=== PATIENT | female | born 1955 | race Caucasian/White ===

== ENCOUNTER 2016-08-21 22:35 | Inpatient (IN) | payer SELFPAY ==
--- NOTE | ~2016-08-21 | DS ---
Discharge Summary [facility] [address] [place]. [address] NAME: RAQUEL VELASCO : 59 STATUS : DIS IN PAT#: [id number] AGE: 61 ADM/REG DATE : 08/22/16 MR#: [id number] REPORT SERV DATE: 08/24/16 DICTATED BY: HERIBERTO CABAN DATE: 08/24/16 REPORT STATUS : Draft TRANSCRIBED BY: MODL DATE: 08/24/16 ADMISSION DATE: 08/22/2016 DISCHARGE DATE: 08/24/2016 DISCHARGE DIAGNOSES: 1. Haemophilus influenzae infection. 2. Acute hypoxic respiratory failure. 3. Chronic obstructive pulmonary disease exacerbation. 4. Leukocytosis. 5. Smoking. 6. Anxiety. 7. Borderline macrocytosis. CONSULTANTS: None. PROCEDURES: None. HOSPITAL COURSE: This is a 61-year-old lady who was admitted to the hospital with initial diagnosis of COPD exacerbation. For details, please refer to excellent H and P dictated by Dr. Federico Suazo. In summary, the patient was admitted and was treated with oxygen support bronchodilator therapy as well as IV steroids and antibiotics. The patient has progressively improved throughout the hospital stay. On the second day of the hospital stay, the patient's respiratory culture did come back positive for H flu and the patient antibiotic was changed from doxycycline to azithromycin. The patient was also evaluated for home O2, which the patient failed by only being able to maintain 87% on room air with ambulation. With oxygen, the patient was quite stable and the patient showed significant clinical improvement. The patient is now being discharged home with home oxygen. The patient follows with Dr. Borrero and she already has an appointment to see him in the near future. DISPOSITION: Home. DISCHARGE MEDICATIONS: 1. Prednisone 40 mg p.o. daily x4 days, and after that, the patient will resume 10 mg p.o. daily, chronic therapy. 2. Azithromycin 500 mg p.o. daily x4 days. 3. Home O2. Otherwise, no medication changes. FOLLOWUP: 1. Please follow up with PCP in the next one to two weeks. 2. Please follow up with Dr. Borrero as already scheduled. A total of 25 minutes spent in coordinating this patient's discharge today. DICTATED BY: Heriberto Caban MD Discharge Summary [place] [id number] [facility] [place]. [id number] NAME: RAQUEL VELASCO : 59 STATUS : DIS IN PAT#: [id number] AGE: 61 ADM/REG DATE : 08/22/16 MR#: [id number] REPORT SERV DATE: 08/24/16 DICTATED BY: HERIBERTO CABAN DATE: 08/24/16 REPORT STATUS : Draft TRANSCRIBED BY: BERNICE DATE: 08/24/16 [facility] Heriberto Caban MD / [id number] CC: Heriberto Caban MD
--- NOTE | ~2016-08-21 | HP ---
History And Physical [place] [id number] [facility] [place]. [address] NAME: RAQUEL VELASCO : 59 STATUS : ADM IN PAT#: [id number] AGE: 61 ADM/REG DATE : 08/22/16 MR#: [id number] REPORT SERV DATE: 08/22/16 DICTATED BY: BRYAN SUAZO DATE: 08/22/16 REPORT STATUS : Draft TRANSCRIBED BY: MODL DATE: 08/22/16 DATE OF ADMISSION: 08/22/2016 CHIEF COMPLAINT: A 61-year-old female presenting with lethargy and shortness of breath. HISTORY OF PRESENTING ILLNESS: The patient's history was obtained through an interview with the patient and her fiance. For really several months now, the patient has been having intermittent difficulty with breathing. About a month ago, she underwent a 10-day course of amoxicillin and prednisone because of recurrent bronchitis. Over the last three or four nights now, the patient has developed increasing shortness of breath characterized by dyspnea on exertion and a cough productive of a thick green sputum. She describes a headache that has been on and off for five months, but it has been worsened now in the last few days at the top of her head, as if her head is going to explode and it sometimes goes down to her neck as an 8/10 severity. No chest pain. No fevers or chills. No nausea or vomiting. She has felt lightheadedness. Sometimes, she has felt incoherent and "groggy." REVIEW OF SYSTEMS: Otherwise, a 14-point review of systems was obtained and was negative. PAST MEDICAL HISTORY: 1. COPD. 2. Hypertension. 3. Gastroesophageal reflux disorder. 4. Anxiety. 5. No cardiac disease. PAST SURGICAL HISTORY: Hysterectomy. ALLERGIES: NO KNOWN DRUG ALLERGIES. SOCIAL HISTORY: The patient continues to smoke. Drinks occasional alcohol. Lives with her fiance in [place], [place]. Has one child. FAMILY HISTORY: Mother with cancer. Brother with spine cancer. CURRENT MEDICATIONS: Include Xanax 1 mg p.o. b.i.d., aspirin 81 mg p.o. daily, Symbicort two puffs inhaled twice a day, Combivent, Lopressor 50 mg p.o. b.i.d., multivitamin daily, Pamelor 75 mg p.o. b.i.d., prednisone 10 mg p.o. daily, Zantac 150 mg p.o. b.i.d., Spiriva History And Physical [address] [address] NAME: RAQUEL VELASCO : 59 STATUS : ADM IN PAT#: [id number] AGE: 61 ADM/REG DATE : 08/22/16 MR#: [id number] REPORT SERV DATE: 08/22/16 DICTATED BY: BRYAN SUAZO DATE: 08/22/16 REPORT STATUS : Draft TRANSCRIBED BY: BERNICE DATE: 08/22/16 inhaled daily, Rexulti. PHYSICAL EXAMINATION: VITAL SIGNS: Temperature 98.7, pulse 62, blood pressure 128/78, respiratory rate 18, and O2 saturation 84% on room air. GENERAL: An ill-appearing female in evidence of distress secondary to shortness of breath. She is quite lethargic as well. HEENT: Pupils equal, round, and reactive to light. No conjunctival pallor. No scleral icterus. Nares are patent. Oropharynx is clear of obstruction. Moist mucous membranes. NECK: Trachea midline. No thyromegaly. LYMPH: No cervical lymphadenopathy. No supraclavicular lymphadenopathy. RESPIRATORY: Quite harsh inspiratory and expiratory wheezes auscultated throughout with diminished breath sounds at the base of lungs in particular. No focal egophony. No rales. The patient has a labored respiratory effort. CARDIOVASCULAR: Regular rate and rhythm. No murmurs, rubs, or gallops. No extremity edema is appreciated. ABDOMEN: Soft, nontender, nondistended. Normal bowel sounds auscultated throughout. No hepatosplenomegaly. DERMATOLOGICAL: Warm and dry extremities. No pallor. No cyanosis. PSYCHIATRIC: Lethargic, but easily responsive to vocal stimuli. Oriented x3. Flat affect, but claims to be in a good mood. LABORATORY DATA: White blood cell count 18.2, hemoglobin 15, hematocrit 47, platelets 317. Sodium 142, potassium 4.3, chloride 102, bicarb 36, BUN 10, creatinine 1.07, glucose 105. Troponin negative. Liver enzymes within normal limits. ABG demonstrates a pH of 7.36, a PaCO2 of 55, a PO2 of 49, and a bicarb of 31 on room air. STUDIES: 1. Chest x-ray by my own evaluation shows no acute cardiopulmonary process. 2. EKG by my own evaluation shows sinus rhythm. There are ST depressions and T-wave inversions in leads 3 and AVF. ASSESSMENT AND PLAN: 1. Hypoxic respiratory failure. Provide supportive care. 2. Chronic obstructive pulmonary disease exacerbation. Follow ABG. As the patient is quite lethargic and has minimal acidosis with hypercapnia, place on IV Solu-Medrol, Duo nebulizers, doxycycline. 3. Leukocytosis. Check sputum culture. Check procalcitonin. Monitor for overt fevers. 4. Abnormal EKG, but no chest pain. Follow troponin. Check telemetry. 5. Macrocytosis. Check studies. KPL/MODL Bryan Suazo M.D. History And Physical [address] [address] NAME: RAQUEL VELASCO : 59 STATUS : ADM IN [facility]#: [id number] AGE: 61 ADM/REG DATE : 08/22/16 MR#: [id number] REPORT SERV DATE: 08/22/16 DICTATED BY: BRYAN SUAZO DATE: 08/22/16 REPORT STATUS : Draft TRANSCRIBED BY: BERNICE DATE: 08/22/16 / [id number] CC: Heriberto Priest MD
[2016-08-21 23:09] LABS: ALLENS TEST Pos; BE (BASE EXCESS) 3.5 MEQ/L (0 +/- 2.5); CARBOXYHEMOGLOBIN 7.2 % (0-3); HCO3 (ACTUAL BICARBONATE) 30.6 MEQ/L (23-27); INSTRUMENT SERIAL # 8087; METHEMOGLOBIN 0.2 % (0-3); O2 CONTENT 17.5 VOL% (18-24); OPERATOR ID 17589; PCO2 (CO2 TENSION) 55 MMHG (35-45); PO2 (O2 TENSION) 49 MMHG (79-93); SAMPLE Arterial; pH 7.36 (7.37-7.43)
[2016-08-21 23:18] LABS: BASOPHILS 0.2 %; BASOPHILS ABSOLUTE 0.03 10/3/uL (0.0-0.16); EOSINOPHILS 0.1 %; EOSINOPHILS ABSOLUTE 0.02 10/3/uL (0.0-0.53); ER CBC TAT 0 Hrs 08 Mins; HEMATOCRIT 46.8 % (36.0-48.0); HEMOGLOBIN 15.5 g/dL (12.0-16.0); IMMATURE GRANULOCYTES 0.3 %; IMMATURE GRANULOCYTES ABSOLUTE 0.05 10/3/uL (0.0-0.11); LYMPHOCYTES 5.9 %; LYMPHOCYTES ABSOLUTE 1.08 10/3/uL (0.67-4.30); MEAN CORPUS HGB CONC 33.1 g/dL (32.0-36.0); MEAN CORPUSCULAR HEMOGLOB 33.3 pg (26.0-34.0); MEAN CORPUSCULAR VOLUME 100.6 fL (80-100); MEAN PLATELET VOLUME 9.3 fL (9.2-13.0); MONOCYTES 2.5 %; MONOCYTES ABSOLUTE 0.46 10/3/uL (0.21-1.20); NEUTROPHILS ABSOLUTE 16.54 10/3/uL (2.02-8.40); PLATELET COUNT 317 10/3/uL (150-400); RBC DISTRIBUTION WIDTH 13.5 % (12.0-16.0); RED CELL COUNT 4.65 10/6/uL (4.0-5.6); WHITE BLOOD CELLS 18.2 10/3/uL (4.5-10.5)
[2016-08-21 23:19] LABS: MANUAL DIFF NO %
[2016-08-21 23:39] LABS: A/G RATIO 0.9 (0.7-1.9); ALBUMIN 3.5 G/DL (3.5-5.0); ALKALINE PHOSPHATASE 95 U/L (45-117); BUN (BLOOD UREA NITROGEN) 10 MG/DL (6-23); CALCIUM, SERUM 9.1 MG/DL (8.5-10.4); CHLORIDE, SERUM 102 MMOL/L (96-112); CO2 (CARBON DIOXIDE) 36 MMOL/L (24-34); CREATININE 1.07 MG/DL (0.55-1.02); GFR AFRICAN AMERICAN 66 ML/MIN (>=60); GFR NON AFRICAN AMERICAN 57 ML/MIN (>=60); GLOBULIN 3.7 G/DL (2.5-4.1); GLUCOSE, SERUM 105 MG/DL (60-99); POTASSIUM, SERUM 4.3 MMOL/L (3.5-5.3); SGOT(AST) 23 U/L (5-40); SGPT(ALT) 55 U/L (5-65); SODIUM, SERUM 142 MMOL/L (135-148); TOTAL BILIRUBIN 0.3 MG/DL (0-1.2); TOTAL PROTEIN 7.2 G/DL (6.0-8.5); TROPONIN I <0.02 NG/ML (<0.05)
[2016-08-22] MEDS ORDERED: ZANTAC 150 PO (01:57)
[2016-08-22] MEDS ORDERED: MULTIVIT/MIN PO (01:57)
[2016-08-22] MEDS ORDERED: P10 PO (01:58)
[2016-08-22] MEDS ORDERED: LOP50 PO (01:59)
[2016-08-22] MEDS ORDERED: REXULTI 2MG PO (01:59)
[2016-08-22] MEDS ORDERED: HALF81 PO (02:00)
[2016-08-22] MEDS ORDERED: NOR75 PO (02:00)
[2016-08-22] MEDS ORDERED: SYMBICORT 160/41 INH INH (02:01)
[2016-08-22] MEDS ORDERED: COMBIVENT RESPIM4 GM INH (02:02)
[2016-08-22] MEDS ORDERED: SPIRIVA INH (02:02)
[2016-08-22] MEDS ORDERED: X5 PO (02:03)
[2016-08-22] MEDS ORDERED: XANAX1 MG PO (02:03)
[2016-08-22 06:03] LABS: ALLENS TEST Pos; BE (BASE EXCESS) 2.8 MEQ/L (0 +/- 2.5); CARBOXYHEMOGLOBIN 3.8 % (0-3); DEVICE NC; HCO3 (ACTUAL BICARBONATE) 28.9 MEQ/L (23-27); HEMOBLOGIN CONTENT 16.1 G/DL (12-16); INSTRUMENT SERIAL # 35151; METHEMOGLOBIN 0.2 % (0-3); O2 CONTENT 20.3 VOL% (18-24); PCO2 (CO2 TENSION) 49 MMHG (35-45); PO2 (O2 TENSION) 69 MMHG (79-93); SAMPLE Arterial; pH 7.39 (7.37-7.43)
[2016-08-22 12:41] LABS: BASOPHILS 0.1 %; BASOPHILS ABSOLUTE 0.01 10/3/uL (0.0-0.16); EOSINOPHILS 0 %; HEMATOCRIT 48.6 % (36.0-48.0); HEMOGLOBIN 16.2 g/dL (12.0-16.0); IMMATURE GRANULOCYTES 0.3 %; IMMATURE GRANULOCYTES ABSOLUTE 0.05 10/3/uL (0.0-0.11); LYMPHOCYTES 6.4 %; LYMPHOCYTES ABSOLUTE 1.01 10/3/uL (0.67-4.30); MEAN CORPUS HGB CONC 33.3 g/dL (32.0-36.0); MEAN PLATELET VOLUME 9.2 fL (9.2-13.0); MONOCYTES ABSOLUTE 0.47 10/3/uL (0.21-1.20); NEUTROPHILS 90.2 %; NEUTROPHILS ABSOLUTE 14.15 10/3/uL (2.02-8.40); PLATELET COUNT 340 10/3/uL (150-400); RBC DISTRIBUTION WIDTH 13.2 % (12.0-16.0); RED CELL COUNT 4.91 10/6/uL (4.0-5.6); WHITE BLOOD CELLS 15.7 10/3/uL (4.5-10.5)
[2016-08-22 12:43] LABS: MANUAL DIFF NO %
[2016-08-22 12:48] LABS: PARTIAL THROMBO TIME 33.9 SEC (22.5-37.2)
[2016-08-22 12:49] LABS: INTERNATIONAL NORMAL RATI 1.1 UNITS (-)
[2016-08-22 13:32] LABS: A/G RATIO 0.9 (0.7-1.9); ALBUMIN 3.7 G/DL (3.5-5.0); ALKALINE PHOSPHATASE 100 U/L (45-117); BUN (BLOOD UREA NITROGEN) 15 MG/DL (6-23); CALCIUM, SERUM 9.6 MG/DL (8.5-10.4); CHLORIDE, SERUM 100 MMOL/L (96-112); CO2 (CARBON DIOXIDE) 32 MMOL/L (24-34); CREATININE 0.95 MG/DL (0.55-1.02); FOLATE 34.9 NG/ML (>5.2); GFR AFRICAN AMERICAN 76 ML/MIN (>=60); GFR NON AFRICAN AMERICAN 66 ML/MIN (>=60); GLUCOSE, SERUM 108 MG/DL (60-99); POTASSIUM, SERUM 4.1 MMOL/L (3.5-5.3); SGOT(AST) 17 U/L (5-40); SGPT(ALT) 50 U/L (5-65); SODIUM, SERUM 139 MMOL/L (135-148); TOTAL BILIRUBIN 0.8 MG/DL (0-1.2); TOTAL PROTEIN 7.7 G/DL (6.0-8.5); ULTRASENSITIVE TSH 0.155 MCIU/ML (0.358-3.740)
[2016-08-22 14:16] LABS: PROCALCITONIN <0.05 ng/mL (<0.5)
[2016-08-23 06:09] LABS: BASOPHILS 0.1 %; BASOPHILS ABSOLUTE 0.01 10/3/uL (0.0-0.16); EOSINOPHILS 0 %; HEMATOCRIT 46.7 % (36.0-48.0); HEMOGLOBIN 15.4 g/dL (12.0-16.0); IMMATURE GRANULOCYTES 0.4 %; IMMATURE GRANULOCYTES ABSOLUTE 0.08 10/3/uL (0.0-0.11); LYMPHOCYTES 4.4 %; MEAN CORPUSCULAR HEMOGLOB 32.6 pg (26.0-34.0); MEAN CORPUSCULAR VOLUME 98.9 fL (80-100); MEAN PLATELET VOLUME 9.6 fL (9.2-13.0); MONOCYTES 2.4 %; MONOCYTES ABSOLUTE 0.43 10/3/uL (0.21-1.20); NEUTROPHILS 92.7 %; NEUTROPHILS ABSOLUTE 16.74 10/3/uL (2.02-8.40); PLATELET COUNT 311 10/3/uL (150-400); RBC DISTRIBUTION WIDTH 13.3 % (12.0-16.0); RED CELL COUNT 4.72 10/6/uL (4.0-5.6); WHITE BLOOD CELLS 18.1 10/3/uL (4.5-10.5)
[2016-08-23 06:14] LABS: MANUAL DIFF NO %
[2016-08-23 06:18] LABS: BUN (BLOOD UREA NITROGEN) 24 MG/DL (6-23); CALCIUM, SERUM 9.7 MG/DL (8.5-10.4); CHLORIDE, SERUM 102 MMOL/L (96-112); CO2 (CARBON DIOXIDE) 33 MMOL/L (24-34); CREATININE 1.09 MG/DL (0.55-1.02); GFR AFRICAN AMERICAN 64 ML/MIN (>=60); GFR NON AFRICAN AMERICAN 56 ML/MIN (>=60); GLUCOSE, SERUM 169 MG/DL (60-99); POTASSIUM, SERUM 4.4 MMOL/L (3.5-5.3); SODIUM, SERUM 139 MMOL/L (135-148)
[2016-08-23 07:44] LABS: PROCALCITONIN <0.05 ng/mL (<0.5)
[2016-08-24] MEDS ORDERED: P20 PO (14:36)
[2016-08-24] MEDS ORDERED: ZITHROMAX500 MG PO (14:37)
[2016-08-24] MEDS ORDERED: HABIT21 TOP (14:37)
== END 2016-08-24 15:08 | disposition home or self-care (01) | DRG 189 ==
LOC: ER 22:35 → 6NO 08-22 02:24
PROVIDERS: Emergency Medicine; Hospitalist; Internal Medicine
DX: J96.01 Acute respiratory failure with hypoxia (principal); E87.2 Acidosis; J44.0 Chronic obstructive pulmonary disease with (acute) lower respiratory infection; J44.1 Chronic obstructive pulmonary disease with (acute) exacerbation; B96.3 Hemophilus influenzae [H. influenzae] as the cause of diseases classified elsewhere; K21.9 Gastro-esophageal reflux disease without esophagitis; F41.9 Anxiety disorder, unspecified; I10 Essential (primary) hypertension; Z90.710 Acquired absence of both cervix and uterus; F17.210 Nicotine dependence, cigarettes, uncomplicated
CPT/HCPCS: 36600; 71010; 80048; 80053; 82607; 82746; 82805; 83735; 84145; 84443; 84484; 85025; 85610; 85730; 87070; 87205; 93005; 94640; 99285; A9270-GY; J2920; J2930